=== PATIENT | female | born 1975 | race African-American/Black ===

== ENCOUNTER 2016-07-05 14:42 | Emergency (ER) | payer OTHER ==
[~2016-07-05] VITALS: Ht 157.5 cm; Wt 89.8 kg
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
[2016-07-05] MEDS ORDERED: MONTELUKAST SOD10 M1 PO (17:12)
[2016-07-05] MEDS ORDERED: PROAIR HFA8.5 GM INH (17:12)
[2016-07-05] MEDS ORDERED: VITAMIN D250000 UNIT PO (17:13)
[2016-07-05] MEDS ORDERED: ATORVASTATIN CA20 M1 PO (17:13)
[2016-07-05] MEDS ORDERED: PANTOPRAZOLE SO40 M1 PO (17:13)
[2016-07-05 17:55] VITALS: BP 140/85
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
[2016-07-05] MEDS ORDERED: TRAMADOL HCL50 M1 PO (18:15)
== END 2016-07-05 18:39 ==
LOC: ERH 14:42
DX: S16.1XXA Strain of muscle, fascia and tendon at neck level, initial encounter (principal); S20.212A Contusion of left front wall of thorax, initial encounter; V89.2XXA Person injured in unspecified motor-vehicle accident, traffic, initial encounter; Y93.9 Activity, unspecified; Y92.9 Unspecified place or not applicable
CPT/HCPCS: 71100-LT; 80307; 81025; 96372; J1885